=== PATIENT | female | born 1955 | race Caucasian/White ===

== ENCOUNTER 2017-01-10 17:54 | Emergency (ER) | payer BC ==
[~2017-01-10] VITALS: Ht 162.6 cm; Wt 89.1 kg
[~2017-01-10 17:54] MED LIST: ALPR-411 PO; DOCU100C31 PO; IRON20IN IV; LEVO150T9 PO; LMC/150 PO; MELA1TAB5 PO; VENL150C PO
[2017-01-10 17:59] VITALS: Ht 162.6 cm; Wt 89.1 kg
[2017-01-10] MEDS ORDERED: SODIUM CHLORIDE 0.9% 1000ML 1,000 ML IV STA (18:32)
[2017-01-10] MEDS ORDERED: ONDANSETRON INJ 2 MG/ML 2 ML VIAL IV STA (18:32)
[2017-01-10 18:43] LABS: BASO % 0.5 %; BASO ABS # 0.05 K/uL (0-0.2); COMPLETE YES; EOS % 1.3 %; HEMATOCRIT 40.2 % (37-47); IG% 0.3 %; LYMPH ABS # 2.47 K/uL (1.2-3.4); MEAN CELL VOLUME 91.8 fL (80-100); MEAN CORPUSCULAR HEMOGLOBIN 31.3 pg (25-34); MEAN CORPUSCULAR HGB CONC 34.1 g/dl (32-36); MEAN PLATELET VOLUME 9.5 fL (7.4-10.4); MONO % 6.1 %; NEUT % 64.8 %; PLATELET COUNT 261 K/uL (130-400); RED BLOOD COUNT 4.38 M/uL (4.2-5.4); WHITE BLOOD COUNT 9.16 K/uL (4.8-10.8)
[2017-01-10 18:49] LABS: URINE APPEARANCE CLEAR (CLEAR); URINE BILIRUBIN NEG (NEG); URINE COLOR YELLOW; URINE EPITHELIAL CELL AUTO 0-5 /lpf (0-5); URINE NITRITE NEG (NEG); URINE SPECIFIC GRAVITY 1.011 (1.000-1.030); UROBILINOGEN NEG (NEG); ZZUR CULT IF INDIC CLEAN CATCH NO
[2017-01-10 18:50] LABS: MANUAL MICROSCOPIC REQUIRED? NO; REVIEW REQ? NO
[2017-01-10 18:53] LABS: PROTHROMBIN TIME (PATIENT) 10.4 SECONDS (9.0-12.0)
[2017-01-10 18:58] LABS: ALT/SGPT 41 U/L (12-78); AST/SGOT 26 U/L (15-37); BLOOD UREA NITROGEN 15 mg/dl (7-18); BUN/CREATININE RATIO 16.3 (10-20); CALCIUM 8.3 mg/dl (8.5-10.1); CARBON DIOXIDE 26 mmol/L (21-32); CHLORIDE 109 mmol/L (98-107); CREATININE 0.94 mg/dl (0.60-1.20); GLUCOSE 84 mg/dl (70-99); POTASSIUM 3.9 mmol/L (3.5-5.1); SODIUM 141 mmol/L (136-145)
[2017-01-10] MEDS ORDERED: MELA5TAB18 PO (19:00)
[2017-01-10 19:01] LABS: ALKALINE PHOSPHATASE 97 U/L (45-117)
--- NOTE | 2017-01-10 19:55 | DIAGNOSTIC IMAGING REPORT ---
CHEST AND ABDOMEN 2 VIEWS HISTORY: Generalized abdominal pain. COMPARISON: Chest 10/05/2012. FINDINGS: The lungs are clear. The cardiomediastinal silhouette is within normal limits. There is no pneumoperitoneum or pneumatosis. No dilated loops of small bowel to suggest an obstruction. No pathologic calcifications. Cervical spinal fusion hardware. There are few punctate calcifications in the deep pelvis likely representing phleboliths. Suture material within the left upper quadrant and right lower quadrant which favors prior gastric bypass. Moderate well-formed stool seen within the colon. IMPRESSION: 1. No acute process within the chest. 2. No evidence for bowel obstruction. 3. Moderate well-formed stool seen throughout the colon. Electronically signed by: Jose Manuel Boothe M.D. 01/10/2017 7:53 PM Dictated Date/Time: 01/10/2017 7:50 PM
--- NOTE | 2017-01-10 20:57 | EMERGENCY ROOM VISIT NOTE ---
History Report prepared by Gregory: Crissy Faye Under the Supervision of: Dr. Guanako Pearl D.O. First contact with patient: 18:31 Chief Complaint: GI ASSESSMENT Stated Complaint: HX OF BOWEL BLOCKAGE-REFERRED BY PCP Nursing Triage Summary: Pt reports diffuse abd pain since last night hx bowel obstructions +nausea, constipation History of Present Illness The patient is a 61 year old female who presents to the Emergency Room with complaints of persistent abdominal pain starting last night. The patient rates her discomfort as a 3/10 in severity. She reports nausea and constipation. She has a history of bowel obstruction and reports that the symptoms are similar. Two weeks ago, she started eating healthily by incorporating more fruits and vegetables and drinking plenty of water. She also started exercising more regularly. She feels like she has been more constipated since then. Source of History: patient Onset: last night Position: abdomen Symptom Intensity: 3/10 Quality: other (pain) Timing: other (persistent) Associated Symptoms: + nausea Note: Pt reports constipation. Review of Systems See HPI for pertinent positives & negatives. A total of 10 systems reviewed and were otherwise negative. Past Medical & Surgical Medical Problems: (1) Depression (2) Partial seizure (3) s/p gastric bypass Family History Diabetes mellitus Social History Smoking Status: Never Smoker Alcohol Use: none Marital Status: Housing Status: lives with significant other Current/Historical Medications Scheduled Docusate Sodium (Docusate Sodium), 100 MG PO HS Lamotrigine (Lamictal), 300 MG PO BID Levothyroxine Sodium (Levothyroxine Sodium), 150 MCG PO DAILY Melatonin (Melatonin), 5 MG PO HS Venlafaxine Hcl (Effexor Xr), 150 MG PO DAILY Scheduled PRN Alprazolam (Xanax), 0.5 MG PO TID PRN for Anxiety Iron Sucrose (Venofer), IV YEARLY PRN for PRN Allergies Coded Allergies: No Known Allergies (Unverified , 01/10/17) Physical Exam Vital Signs Date Time Temp Pulse Resp B/P (MAP) Pulse Ox O2 Delivery O2 Flow Rate FiO2 01/10/17 17:59 36.9 82 18 134/88 96 Room Air Physical Exam CONSTITUTIONAL/VITAL SIGNS: Reviewed / noted above. GENERAL: Non-toxic in appearance. INTEGUMENTARY: Warm, dry, and [place]. HEAD: Normocephalic. EYES: without scleral icterus or trauma. ENT/OROPHARYNX: clear and moist. LYMPHADENOPATHY/NECK: Is supple without lymphadenopathy or meningismus. RESPIRATORY: Lungs clear and equal. CARDIOVASCULAR: Regular rate and rhythm. GI/ABDOMEN: Soft and nontender. No organomegaly or pulsatile mass. No rebound or guarding. Normal bowel sounds. EXTREMITIES: Warm and well perfused. BACK: No CVA tenderness. NEUROLOGICAL: Intact without focal deficits. PSYCHIATRIC: normal affect. MUSCULOSKELETAL: Normally developed with good muscle tone. Medical Decision & Procedures ER Provider Diagnostic Interpretation: X ray results and stated below per my interpretation and radiology interpretation. CHEST AND ABDOMEN 2 VIEWS HISTORY: Generalized abdominal pain. COMPARISON: Chest 10/05/2012. FINDINGS: The lungs are clear. The cardiomediastinal silhouette is within normal limits. There is no pneumoperitoneum or pneumatosis. No dilated loops of small bowel to suggest an obstruction. No pathologic calcifications. Cervical spinal fusion hardware. There are few punctate calcifications in the deep pelvis likely representing phleboliths. Suture material within the left upper quadrant and right lower quadrant which favors prior gastric bypass. Moderate well-formed stool seen within the colon. IMPRESSION: 1. No acute process within the chest. 2. No evidence for bowel obstruction. 3. Moderate well-formed stool seen throughout the colon. Electronically signed by: Jose Manuel Boothe M.D. 01/10/2017 7:53 PM Dictated Date/Time: 01/10/2017 7:50 PM Laboratory Results 01/10/17 18:25 Red Blood Count 4.38, Mean Corpuscular Volume 91.8, Mean Corpuscular Hemoglobin 31.3, Mean Corpuscular Hemoglobin Concent 34.1, Mean Platelet Volume 9.5, Neutrophils (%) (Auto) 64.8, Lymphocytes (%) (Auto) 27.0, Monocytes (%) (Auto) 6.1, Eosinophils (%) (Auto) 1.3, Basophils (%) (Auto) 0.5, Neutrophils # (Auto) 5.93, Lymphocytes # (Auto) 2.47, Monocytes # (Auto) 0.56, Eosinophils # (Auto) 0.12, Basophils # (Auto) 0.05 01/10/17 18:25 Test 01/10/17 18:00 01/10/17 18:25 Urine Color YELLOW Urine Appearance CLEAR (CLEAR) Urine pH 5.0 (4.5-7.5) Urine Specific [place] 1.011 (1.000-1.030) Urine Protein NEG (NEG) Urine Glucose (UA) NEG (NEG) Urine Ketones NEG (NEG) Urine Occult Blood TRACE (NEG) Urine Nitrite NEG (NEG) Urine Bilirubin NEG (NEG) Urine Urobilinogen NEG (NEG) Urine Leukocyte Esterase NEG (NEG) Urine WBC (Auto) 1-5 /hpf (0-5) Urine RBC (Auto) 0-4 /hpf (0-4) Urine Hyaline Casts (Auto) 0 /lpf (0-5) Urine Epithelial Cells (Auto) 0-5 /lpf (0-5) Urine Bacteria (Auto) NEG (NEG) White Blood Count 9.16 K/uL (4.8-10.8) Red Blood Count 4.38 M/uL (4.2-5.4) Hemoglobin 13.7 g/dL (12.0-16.0) Hematocrit 40.2 % (37-47) Mean Corpuscular Volume 91.8 fL (80-100) Mean Corpuscular Hemoglobin 31.3 pg (25-34) Mean Corpuscular Hemoglobin Concent 34.1 g/dl (32-36) Platelet Count 261 K/uL (130-400) Mean Platelet Volume 9.5 fL (7.4-10.4) Neutrophils (%) (Auto) 64.8 % Lymphocytes (%) (Auto) 27.0 % Monocytes (%) (Auto) 6.1 % Eosinophils (%) (Auto) 1.3 % Basophils (%) (Auto) 0.5 % Neutrophils # (Auto) 5.93 K/uL (1.4-6.5) Lymphocytes # (Auto) 2.47 K/uL (1.2-3.4) Monocytes # (Auto) 0.56 K/uL (0.11-0.59) Eosinophils # (Auto) 0.12 K/uL (0-0.5) Basophils # (Auto) 0.05 K/uL (0-0.2) RDW Standard Deviation 43.7 fL (36.4-46.3) RDW Coefficient of Variation 13.1 % (11.5-14.5) Immature Granulocyte % (Auto) 0.3 % Immature Granulocyte # (Auto) 0.03 K/uL (0.00-0.02) Prothrombin Time 10.4 SECONDS (9.0-12.0) Prothromb Time International Ratio 1.0 (0.9-1.1) Activated Partial Thromboplast Time 25.9 SECONDS (21.0-31.0) Partial Thromboplastin Ratio 1.0 Anion Gap 6.0 mmol/L (3-11) Est Creatinine Clear Calc Drug Dose 68.8 ml/min Estimated GFR () 76.4 Estimated GFR (Non- 65.9 BUN/Creatinine Ratio 16.3 (10-20) Calcium Level 8.3 mg/dl (8.5-10.1) Total Bilirubin 0.4 mg/dl (0.2-1) Direct Bilirubin < 0.1 mg/dl (0-0.2) Aspartate Amino Transf (AST/SGOT) 26 U/L (15-37) Alanine Aminotransferase (ALT/SGPT) 41 U/L (12-78) Alkaline Phosphatase 97 U/L (45-117) Total Protein 7.5 gm/dl (6.4-8.2) Albumin 4.4 gm/dl (3.4-5.0) Lipase 176 U/L (73-393) Laboratory results as stated above per my review. Medications Administered Medications (Trade) Dose Ordered Sig/Nubia Route Start Time Stop Time Status Last Admin Dose Admin Sodium Chloride 1,000 ml @ 999 mls/hr Q1H1M STAT IV 01/10/17 18:32 01/10/17 19:32 DC 01/10/17 18:57 999 MLS/HR Ondansetron HCl (Zofran Inj) 4 mg NOW STAT IV 01/10/17 18:32 01/10/17 18:33 DC 01/10/17 18:57 4 MG ED Course 1830: Previous medical records were reviewed. The patient was evaluated in room B8. A complete history and physical examination was performed. 183: Zofran Inj 4 mg IV, NSS 1000 ml @ 999 mls/hr IV. 2030: On reevaluation, the patient is resting comfortably. I discussed the results and findings with the patient. She verbalized agreement of the treatment plan. She was discharged home. Medical Decision Differential considered: pancreatitis, hepatitis, or acute cholecystitis, AAA, UTI, pyelonephritis, kidney stones, appendicitis, diverticulitis, shingles, bowel obstruction mesenteric ischemia, intussusception,hernia, testicular torsion, ovarian torsion, ruptured ovarian cyst,ectopic , . Medication Reconciliation: I attest that I have personally reviewed the patient' s current medication list. Blood pressure Screening: Patient was found to have normal blood pressure on screening and does not require follow-up. This is a 61-year-old female who presents to the ED with a chief complaint of abdominal discomfort and constipation. She reports a history of bowel obstruction. She states that her symptoms started last night. She has some associated nausea but no vomiting. Her vital signs are normal. Physical exam did not reveal any significant tenderness. CBC and complete metabolic panel are normal. Lipase was negative. Urine did not show infection. Acute abdominal series reveals moderate stool in the colon but no obstructive pattern. Chest x-ray was clear. The patient was treated with IV fluids and IV Zofran. I recommended Rabia lax or magnesium citrate for her symptoms. She will follow-up with her PCP if symptoms persist. She does report having had changed her diet recently to mostly salads. This may be contributing to her constipation. Impression Primary Impression: Constipation Scribe Attestation The scribe's documentation has been prepared under my direction and personally reviewed by me in its entirety. I confirm that the note above accurately reflects all work, treatment, procedures, and medical decision making performed by me. Departure Information Dispostion Home / Self-Care Referrals Shivam Worthington M.D. (PCP) Patient Instructions My [facility] Additional Instructions Try Rabia lax or magnesium citrate for constipation. Follow-up with your doctor for further care and evaluation in 1-3 days if symptoms persist. Return to the emergency department for worsening or new symptoms or any concerns. You have been examined and treated today on an emergency basis only. This is not a substitute for, or an effort to provide, complete comprehensive medical care. It is impossible to recognize and treat all injuries or illnesses in a single emergency department visit. It is therefore important that you follow up closely with your doctor. Call as soon as possible for an appointment.
[2017-01-10 21:38] VITALS: BP 125/80; PULSE 67; TEMP 36.9; O2SAT 97
[2017-02-13] MEDS ORDERED: FERR1TAB23 PO (13:46)
[2017-02-13] MEDS ORDERED: CHOL100010 PO (13:46)
== END 2017-01-10 21:10 | disposition home or self-care (01) ==
LOC: C.EDB 17:55
DX: K59.00 Constipation, unspecified (principal); K56.60 Unspecified intestinal obstruction; G40.909 Epilepsy, unspecified, not intractable, without status epilepticus; F32.9 Major depressive disorder, single episode, unspecified; Z98.84 Bariatric surgery status; Z98.890 Other specified postprocedural states; Z83.3 Family history of diabetes mellitus

== ENCOUNTER → 2017-02-15 | Day surgery (SDC) | payer BC ==
[2017-02-13 13:47] VITALS: Ht 163.8 cm; Wt 87.3 kg
[~2017-02-15] VITALS: Ht 163.8 cm; Wt 87.3 kg
[~2017-02-15] MED LIST changes: +CHOL100010 PO; +FERR1TAB23 PO; +LIDOCAINE HCL 2% 2 ML VIAL (20MG/ML) ONE; -MELA1TAB5 PO; +MELA5TAB18 PO; +PROPOFOL IV EMULSION 10 MG/ML 20 ML VIAL IV ONE; +SODIUM CHLORIDE 0.9% 500ML 500 ML IV ONE
--- NOTE | 2017-02-15 10:49 | Endo History and Physical ---
History & Physical Date of Service: Feb 15, 2017. Chief Complaint: Nausea, Constipation, S/P Resection Referring Physician: Elin History of Present Illness 61 yo presenting for colonoscopy for constipation and hx of large TVA polyp s/p surgical resection. Past Surgical History Hx Cardiac Surgery: No Hx Internal Defibrillator: No Hx Pacemaker: No Hx Abdominal Surgery: Yes (GASTRIC BYPASS, COLON RESECTION X2 R/T POLYPS, HERNIA REPAIR) Hx of Implantable Prosthesis: No Hx Post-Op Nausea and Vomiting: No Hx Cancer Surgery: No Hx Thoracic Surgery: No Hx Orthopedic: Yes (C5-6, 7-9 FUSION (FULL ROM), RT RCR, RT/LT CTR) Hx Urinary Tract Surgery: No Family History Polyp Social History Smoking Status: Never Smoker Hx Substance Use: No Hx Alcohol Use: No Allergies Coded Allergies: No Known Allergies (Unverified , 02/15/17) Current Medications Reported Home Medications Medications Dose Route/Sig Max Daily Dose Days Date Category Vitamin D (Cholecalciferol) 1,000 Unit Tab 1 Tab PO QAM 02/13/17 Reported Melatonin 5 Mg Tab 5 Mg PO HS 01/10/17 Reported Docusate Sodium 100 Mg Cap 100 Mg PO HS 07/09/16 Reported Levothyroxine Sodium 150 Mcg Tab 150 Mcg PO QAM 07/09/16 Reported Venofer (Iron Sucrose) 20 Mg/Ml Inj IV YEARLY PRN 10/05/12 Reported Lamictal (Lamotrigine) 150 Mg Tab 300 Mg PO BID 10/05/12 Reported Effexor Xr (Venlafaxine Hcl) 150 Mg Cap 150 Mg PO QAM 10/05/12 Reported Xanax (Alprazolam) 0.5 Mg Tab 0.5 Mg PO TID PRN 10/05/12 Reported Vital Signs Weight (Kilograms): 87.27 Height (Feet): 5 Height (Inches): 4.5 Date Time Temp Pulse Resp B/P (MAP) Pulse Ox O2 Delivery O2 Flow Rate FiO2 02/15/17 09:52 37.2 70 18 114/72 (86) 96 Room Air Physical Exam General Appearance: no apparent distress Respiratory/Chest: Respiratory effort: no dyspnea Auscultation: breath sounds normal, CTA except as noted, no wheezing Cardiovascular: Apical Impulse: not displaced Heart Auscultation: RRR, normal S1, normal S2 Abdomen: Bowel Sounds: normal Inspection & Palpation: soft, non-distended Assessment and Plan 61 yo presenting for colonoscopy for constipation and polyp follow up
--- NOTE | 2017-02-15 11:39 | GI REPORT ---
Procedure Date: 02/15/2017 9:46 AM Procedure: Colonoscopy Indications: High risk colon cancer surveillance: Personal history of colonic polyps, Incidental constipation noted Medicines: General Anesthesia Complications: No immediate complications. Estimated blood loss: None. Estimated Blood Loss: Estimated blood loss: none. Procedure: Pre-Anesthesia Assessment: - Pre-Anesthesia Assessment: - Prior to the procedure, a History and Physical was performed, and patient medications, allergies and sensitivities were reviewed. The patient's tolerance of previous anesthesia was reviewed. Please see [facility] for complete details. - The risks and benefits of the procedure and the sedation options and risks were discussed with the patient. All questions were answered and informed consent was obtained. - Patient identification and proposed procedure were verified prior to the procedure by the physician and the nurse. The procedure was verified in the pre-procedure area in the procedure room. After obtaining informed consent, the endoscope was passed carefully and meticuously under direct vision and only advanced when the lumen was clearly identified, C02 insuflation was utilized throughout the entirity of the procedure. Throughout the procedure, the patient's blood pressure, pulse, and oxygen saturations were monitored continuously. After I obtained informed consent, the scope was passed under direct vision. Throughout the procedure, the patient's blood pressure, pulse, and oxygen saturations were monitored continuously. The Scope was introduced through the anus and advanced to the terminal ileum. The colonoscopy was performed without difficulty. The patient tolerated the procedure well. The quality of the bowel preparation was good. Findings: There was evidence of a prior end-to-end ileo-colonic anastomosis in the ascending colon. This was patent and was characterized by healthy appearing mucosa. The anastomosis was traversed. The terminal ileum appeared normal. Multiple small-mouthed diverticula were found in the sigmoid colon. Internal hemorrhoids were found during retroflexion. The exam was otherwise without abnormality on direct and retroflexion views. Impression: - Patent end-to-end ileo-colonic anastomosis, characterized by healthy appearing mucosa. - The examined portion of the ileum was normal. - Diverticulosis in the sigmoid colon. - Internal hemorrhoids. - The examination was otherwise normal on direct and retroflexion views. - No specimens collected. Recommendation: - Discharge patient to home (with escort). - Repeat colonoscopy in 5 years for surveillance. - Return to referring physician as previously scheduled. - Consider initiation of osmotic laxative such as miralax daily. Rigo Cooper MD 02/15/2017 11:39:45 AM This report has been signed electronically. Note Initiated On: 02/15/2017 9:46 AM I attest to the content of the Intraoperative Record and orders documented therein, exceptions below
--- NOTE | 2017-02-15 11:40 | Discharge Instructions ---
Endoscopy Patient Instructions Date / Procedure(s) Performed Feb 15, 2017. Colonoscopy Allergy Information Coded Allergies: No Known Allergies (Unverified , 02/15/17) Discharge Date / Findings Feb 15, 2017. - Discharge patient to home (with escort). - Repeat colonoscopy in 5 years for surveillance. - Return to referring physician as previously scheduled. - Consider initiation of osmotic laxative such as miralax daily Provider Instructions Activity Restrictions - No exercising or heavy lifting for 24 hours. - Do not drink alcohol the day of the procedure. - Do not drive a car or operate machinery until the day after the procedure. - Do not make any important decisions or sign important papers in 24 hours after the procedure. Following Day: - Return to full activity which may include returning to work/school. Diet Start your diet with liquids and light foods (jello, soup, juice, toast). Then eat your usual diet if not nauseated. Treatment For Common After Affects For mild abdominal pain, bloating, or excessive gas: - Rest - Eat lightly - Lie on right side Follow-Up Information Follow-up with [facility] as scheduled Anesthesia Information What You Should Know You have had a procedure that required some medicine to reduce anxiety and discomfort. This treatment is called moderate sedation. After receiving the treatment, you may be sleepy, but you will be able to breathe on your own. The effects of the treatment may last for several hours. Follow these instructions along with Activity/Diet recommendations noted above: * Do NOT do anything where dizziness or clumsiness would be dangerous. * Rest quietly at home today, then you can be up and about tomorrow. * Have a responsible person stay with you the rest of today. * You may have had an I.V. today. If so, you may take the dressing off later today. Recommendations Call your doctor if: * Trouble breathing * Continuous vomiting for more than 24 hours * Temperature above 101 degrees * Severe abdominal pain or bloating * Pain not relieved by pain medicine ordered * There is increased drainage or redness from any incision * A large amount of rectal bleeding greater than 2-3 tablespoons. (If you had a polyp/s removed or have hemorrhoids, a small amount of blood - from the rectum is to be expected.) * You have any unanswered questions or concerns. IN THE EVENT OF A SERIOUS EMERGENCY, GO TO THE NEAREST EMERGENCY ROOM Your discharge instructions were prepared by provider Rigo Cooper. Patient Instructions Signature Page Rebecca Ireland Patient (or Guardian) Signature/Date: I have read and understand the instructions given to me by my caregivers. Caregiver/RN/Doctor Signature/Date: The above-named patient and/or guardian has received patient instructions on this date. + Original Patient Signature Page (only) stays with chart. Please make copy for patient.
[2017-02-15 11:42] VITALS: BP 123/70; PULSE 72; O2SAT 98
--- NOTE | 2017-02-15 12:03 | Anesthesiology Progress Note ---
Anesthesia Post Op Note Date & Time Feb 15, 2017 at 12:03 Vital Signs Pain Intensity: 0 Vital Signs Past 12 Hours Date Time Temp Pulse Resp B/P (MAP) Pulse Ox O2 Delivery O2 Flow Rate FiO2 02/15/17 11:42 72 16 123/70 (87) 98 Room Air 02/15/17 11:33 61 16 102/54 (70) 98 Room Air 02/15/17 11:24 75 16 96/56 (69) 95 Room Air 02/15/17 09:52 37.2 70 18 114/72 (86) 96 Room Air Notes Mental Status: alert / awake / arousable, participated in evaluation Pt Amnestic to Procedure: Yes Nausea / Vomiting: adequately controlled Pain: adequately controlled Airway Patency, RR, SpO2: stable & adequate BP & HR: stable & adequate Hydration State: stable & adequate Anesthetic Complications: no major complications apparent
== END | disposition home or self-care (01) ==
LOC: C.GI 09:28
PROVIDERS: ATTEND Internal Medicine
DX: R11.0 Nausea (principal); K59.00 Constipation, unspecified; K57.90 Diverticulosis of intestine, part unspecified, without perforation or abscess without bleeding; Z86.010 Personal history of colon polyps; K64.8 Other hemorrhoids; Z98.84 Bariatric surgery status; Z98.890 Other specified postprocedural states; Z98.1 Arthrodesis status; Z83.71 Family history of colonic polyps; R56.9 Unspecified convulsions; F41.9 Anxiety disorder, unspecified